=== PATIENT | female | born 1975 | race Caucasian/White ===

== ENCOUNTER → 2017-04-15 | Outpatient (REF) | payer OTHER | LOC: M LAB REF 17:15 | PROVIDERS: ATTEND Family Medicine | DX: R31.0 Gross hematuria (principal); N20.0 Calculus of kidney ==

== ENCOUNTER → 2017-04-24 | Outpatient (CLI) | payer OTHER ==
--- NOTE | 2017-04-25 07:44 | REP ---
REASON: Renal colic. PRIORS: None. The lung bases are clear. Limited evaluation of the gallbladder, spleen, pancreas, adrenal glands, and kidneys show no gross abnormalities. There is no evidence of nephroureterolithiasis, hydronephrosis, or hydroureter. There are no urinary or bladder calcifications. Limited evaluation of the bowel loops and their mesenteries show no gross abnormalities. There is no free fluid or free air in the abdomen. In the lateral segment of the left lower lobe of the liver, there is a round 1.3 cm sized low density lesion which has water than Hounsfield unit readings consistent with small simple hepatic cyst. Limited evaluation of the abdominal aorta and para-aortic regions show no gross abnormalities. CT PELVIS: Postoperative change is seen in the pelvis. There is no free fluid or free air. There is no mass or adenopathy. In the left lower quadrant of the abdomen, abutting the inner surface of the anterior abdominal wall, there is a 1.4 cm sized very low density nodule having lower than water Hounsfield unit readings. The mesentery surrounding this is not infiltrated and the margins of this are smooth. Bone window technique throughout the examination shows the osseous structures to be within normal limits. There is subtle fatty infiltration seen abutting the right lower quadrant abdominal wall, which has the appearance of a previous scar. There is no evidence of a ventral hernia. IMPRESSION: 1. There is no evidence of acute intra-abdominal or intrapelvic disease. 2. There is a simple hepatic cyst as described above. 3. There is a small round focal fatty deposit in the left lower quadrant of uncertain etiology. This could be a sequelae of old infection. 4. Evidence of scar formation right lower quadrant. The patient does have previous history of appendectomy and the finding likely represents an incision over McBurney's point. 5. Other findings as described above. Signed by Edin Dumont DO 04/26/2017 01:52 P
== END ==
LOC: M RAD 16:31
PROVIDERS: ATTEND Family Medicine
DX: N23 Unspecified renal colic (principal); N20.0 Calculus of kidney; R31.0 Gross hematuria; K76.89 Other specified diseases of liver